=== PATIENT | male | born 1965 | race Caucasian/White ===

== ENCOUNTER 2017-01-30 11:34 | Emergency (ER) | payer SELFPAY ==
[~2017-01-30] VITALS: Ht 170.2 cm; Wt 77.0 kg
[2017-01-30 11:36] VITALS: BP 159/99; PULSE 90; RESP 20; TEMP 87.7; O2SAT 99
--- NOTE | 2017-01-30 11:45 | PD ---
Physical Exam Date Seen by Provider: Jan 30, 2017 Time Seen by Provider: 11:44 Narrative 51 Y/O male with Puncture wound to Right Forearm from Nail form Nail Gun. Pain 6/10. No numbness or tingling. No Loss of Function. Patient is Stable and Awaiting Bed Placement. Data Data Last Documented VS Vital Signs Date Time Temp Pulse Resp B/P (MAP) Pulse Ox O2 Delivery O2 Flow Rate FiO2 01/30/17 11:36 87.7 90 20 159/99 (119) 99 Room Air [facility] Medical Record Reviewed: Yes Supervised Visit with SABI: Yes Condition: Stable Slick Schaeffer Jan 30, 2017 11:45
[2017-01-30] MEDS ORDERED: LIDOCAINE 1%/EPINEPHrine 1:100,000 SOLN 20 ML VIAL INFIL ONE (12:15)
[2017-01-30] MEDS ORDERED: TETANUS/DIPHTHERIA TOXOID ADULT 0.5 ML VIAL IM ONE (12:15)
[2017-01-30] MEDS ORDERED: IBUP800T23 PO (12:22)
[2017-01-30] MEDS ORDERED: CEPH-460 PO (12:22)
--- NOTE | 2017-01-30 12:23 | PD ---
HPI Chief Complaint: Laceration/Skin Injury Time Seen by Provider: 12:18 Travel History International Travel<30 days: No Contact w/Intl Traveler<30days: No Traveled to known affect area: No History of Present Illness HPI 51-year-old male presents emergency Department with complaint of a nail stuck in his right forearm from a nail gun today. Unknown tetanus status. Denies paresthesias, loss of sensation or decreased range motion, decreased strength to the affected extremity. Took a 10 mg oxycodone earlier this morning that he has prescribed to him. Has not taken any other medications or try any other treatments to alleviate his symptoms. Symptoms are moderate in severity. No known allergies. No other medical complaints. No other modifying factors or associated signs and symptoms. PFSH Social History Tobacco Use: No Allergies-Medications (Allergen,Severity, Reaction): Coded Allergies: No Known Allergies (Unverified , 01/30/17) Reported Meds & Prescriptions Reported Meds & Active Scripts Active Ibuprofen 800 Mg Tab 800 Mg PO Q6HR PRN 10 Days Keflex (Cephalexin) 500 Mg Cap 500 Mg PO Q8H 7 Days Review of Systems Except as stated in HPI: all other systems reviewed are Neg Physical Exam Narrative GENERAL: Well-nourished, well-developed male patient, in no acute distress SKIN: Warm and dry. Right midforearm with a penetrated nail; areas without bleeding; without erythema, edema. Right upper extremity supple and non-tense with 2+ radial pulse and sensory intact and without erythema or edema. All fingers with full range of motion and sensory intact. Full custom harvester strength. HEAD: Atraumatic. Normocephalic. EYES: Pupils equal and round. No scleral icterus. No injection or drainage. ENT: Mucosa pink and moist. Airway patent. NECK: Trachea midline. CARDIOVASCULAR: Regular rate. RESPIRATORY: No accessory muscle use. GASTROINTESTINAL: Flat. MUSCULOSKELETAL: No obvious deformities. No clubbing. No cyanosis. No edema. NEUROLOGICAL: Awake and alert. Oriented 3. No obvious cranial nerve deficits. Motor grossly within normal limits. Normal speech. PSYCHIATRIC: Appropriate mood and affect; insight and judgment normal. Data Data Last Documented VS Vital Signs Date Time Temp Pulse Resp B/P (MAP) Pulse Ox O2 Delivery O2 Flow Rate FiO2 01/30/17 11:36 87.7 90 20 159/99 (119) 99 Room Air Orders Orders Forearm (2vws) (01/30/17 12:12) Tetanus/Diphtheria Tox Adult (Tetanus/Di (01/30/17 12:15) Lidocai-Epi 1%-1:100,000 Inj (Xylocaine- (01/30/17 12:15) Lidocaine 1% Inj (50 Ml) (Xylocaine 1% I (01/30/17 13:00) Ibuprofen (Motrin) (01/30/17 13:45) Forearm (2vws) (01/30/17 13:42) MDM Medical Decision Making Medical Screen Exam Complete: Yes Emergency Medical Condition: Yes Medical Record Reviewed: Yes Differential Diagnosis Puncture wound, soft tissue foreign body, tetanus update Narrative Course 51-year-old male with a nail penetrated into his right forearm. Tetanus updated in the ER. Right forearm x-ray ordered. 1248: Right forearm x-ray concludes: Nail in patient's right forearm/soft tissues. No fracture. See my procedure note for nail removal. Wound care provided. Ibuprofen administered in the ER. X-ray post-foreign body removal ordered. 1435: Right forearm x-ray concludes foreign body removal. Keflex, ibuprofen prescribed for home. Instructed patient to follow up with primary care provider. Patient verbalizes understanding and agreement with treatment plan. Patient is medically cleared and stable for discharge. Discussed reasons to return to the emergency department. Patient agrees with treatment plan. The patients vital signs are stable and the patient is stable for outpatient follow- up and treatment. Patient discharged home, stable and in no acute distress. Procedures Procedure Narrative Foreign body removal of right forearm: The area was properly anesthetized with 1% lidocaine. The nail was removed. Patient tolerated well. Sterile Dressing applied. Diagnosis Primary Impression: Foreign body in soft tissue Additional Impression: Puncture wound of forearm with foreign body Qualified Codes: S51.841A - Puncture wound with foreign body of right forearm , initial encounter Referrals: Primary Care Physician Patient Instructions: General Instructions Departure Forms: Tests/Procedures, Work Release Enter return to work date: Feb 01, 2017 Additional Instructions: Ibuprofen or Tylenol instructed as needed for pain and information Antibiotics as prescribed and take until they are gone Keep area clean and dry Topical antibiotic ointment as directed nausea for wound care Bandage as needed for wound care To follow-up with primary care provider Return to the emergency department immediately if worsening of symptoms Med/Other Pt SpecificInfo: Prescription(s) given Scripts Ibuprofen (Ibuprofen) 800 Mg Tab 800 MG PO Q6HR Y for PAIN for 10 Days, #40 TAB 0 Refills Prov: Hien Mane 01/30/17 Cephalexin (Keflex) 500 Mg Cap 500 MG PO Q8H for Infection for 7 Days, #30 CAP 0 Refills Prov: Hien Mane 01/30/17 Disposition: 01 DISCHARGE HOME Condition: Stable Hien Mane Jan 30, 2017 12:23
--- NOTE | 2017-01-30 12:45 | RADRPT ---
EXAM DATE/TIME: 01/30/2017 12:33 [facility] COMPARISON: No previous studies available for comparison. INDICATIONS : Nail in patient arm. Pain when patient moves fingers. MEDICAL HISTORY : None. SURGICAL HISTORY : None. ENCOUNTER: Initial ACUITY: 1 day PAIN SCORE: 5/10 LOCATION: Right Forearm. FINDINGS: Two view examination of the right forearm demonstrates no evidence of fracture or dislocation. Bony mineralization is normal. There is a nail in the soft tissues of the midforearm. No acute bony involv ement.. CONCLUSION: Nail in patient's right forearm/soft tissues. No fracture. Tom Walls MD on January 30, 2017 at 12:43 Board Certified Radiologist. This report was verified electronically.
[2017-01-30] MEDS ORDERED: LIDOCAINE HCL 1% 50 ML VIAL INFIL ONE (13:00)
[2017-01-30] MEDS ORDERED: IBUPROFEN 800 MG TAB PO ONE (13:45)
--- NOTE | 2017-01-30 14:29 | RADRPT ---
EXAM DATE/TIME: 01/30/2017 14:24 [facility] COMPARISON: No previous studies available for comparison. INDICATIONS : Post foreign body removal. MEDICAL HISTORY : None. SURGICAL HISTORY : None. ENCOUNTER: Initial ACUITY: 1 day PAIN SCORE: 0/10 LOCATION: Right Forearm FINDINGS: Two view examination of the right forearm demonstrates no evidence of fracture or dislocation. Bony mineralization is normal. The soft tissue structures are intact. More moderate has been removed. CONCLUSION: The nail has been removed from the soft tissues. Tom Walls MD on January 30, 2017 at 14:27 Board Certified Radiologist. This report was verified electronically.
== END 2017-01-30 14:51 | disposition home or self-care (01) ==
LOC: NEPK 11:34
DX: S51.841A Puncture wound with foreign body of right forearm, initial encounter (principal); W29.4XXA Contact with nail gun, initial encounter; Z23 Encounter for immunization
CPT/HCPCS: 10120; 73090; 90471; 90714